=== PATIENT | female | born 1950 ===

== ENCOUNTER 2017-02-24 07:18 | Day surgery (SDC) | payer BC ==
[2017-02-24 07:38] VITALS: BMI 25.9
[2017-02-24 08:36] LABS: BASO # 0.02 K/mm3 (0.0-2.0); BASO % 0.2 % (0.0-3.0); EOS # 0.1 (0.0-0.7); EOS % 1.5 % (1.5-5.0); HEMOGLOBIN 12.3 gm/dL (12.0-16.0); LYMPH # 2.4 (1.2-3.4); LYMPH % 29.2 % (22.0-35.0); MEAN CELL VOLUME 89.4 fL (80.0-105.0); MEAN CORPUSCULAR HEMOGLOBIN 29.5 pg (25.0-35.0); MEAN PLATELET VOLUME 10.3 fl (7.0-11.0); MONO # 0.5 (0.1-0.6); MONO % 6.1 % (1.0-6.0); PLATELET COUNT 240 10^3/uL (120.0-450.0); RBC 4.17 10^6/uL (3.5-6.1); RED CELL DISTRIBUTION WIDTH 13.7 % (11.5-14.5); WHITE BLOOD COUNT 8.1 10^3/ul (4.5-11.0)
[2017-02-24 08:46] LABS: INR 0.9 (0.93-1.08); PARTIAL THROMBOPLASTIN TIME 25.6 Seconds (23.7-30.8); PROTHROMBIN TIME 9.7 Seconds (9.9-11.8)
[2017-02-24 08:47] LABS: BLOOD UREA NITROGEN 14 mg/dL (7-21); CALCIUM 9.7 mg/dL (8.4-10.5); GFR AFRICAN-AMERICAN > 60; GFR NON-AFRICAN AMERICAN > 60
[2017-02-24] MEDS ORDERED: Lidocaine 2% Inj (20ml) ONE (08:49)
[2017-02-24] MEDS ORDERED: Midazolam 2 MG/2 ML VIAL ONE ×2 (09:10→09:46)
--- NOTE | 2017-02-24 09:20 | ED PDOC ---
Arrival/HPI - General Chief Complaint: Medical Clearance Time Seen by Provider: 02/24/17 07:23 Historian: Patient - History of Present Illness Narrative History of Present Illness (Text): 02/24/17 09:42 A 66 year old female was sent to the emergency department by Dr. Fernando Portillo for mediport placement today. Patient denies any other complaints at this time. Activities at Onset: Rest Modifying Factors (Text): none Context: Home Associated Symptoms (Text): none Past Medical History - Provider Review Nursing Documentation Reviewed: Yes - Cardiac Hx Cardiac Disorders: No - Pulmonary Hx Respiratory Disorders: No - Neurological Hx Neurological Disorder: No - HEENT Hx HEENT Disorder: No - Renal Hx Renal Disorder: No - Endocrine/Metabolic Hx Endocrine Disorders: Yes Hx Hypothyroidism: Yes - Hematological/Oncological Hx Cancer: Yes - Genitourinary/Gynecological Hx Ovarian Cancer: Yes - Psychiatric Hx Substance Use: No - Surgical History Hx Hysterectomy: Yes Hx Thyroidectomy: Yes - Anesthesia Hx Anesthesia: Yes Hx Anesthesia Reactions: No Hx Malignant Hyperthermia: No Family/Social History - Physician Review Nursing Documentation Reviewed: Yes Family/Social History: No Known Family HX Smoking Status: Never Smoked Hx Alcohol Use: No Hx Substance Use: No Allergies/Home Meds Allergies/Adverse Reactions: Allergies No Known Allergies Allergy (Verified 02/24/17 07:38) Home Medications: Home Meds Medication Instructions Recorded Confirmed Enoxaparin [Lovenox] 40 mg SQ DAILY 02/24/17 02/24/17 Levothyroxine [Synthroid] 75 mcg PO DAILY 02/24/17 02/24/17 Review of Systems - Physician Review All systems were reviewed & negative as marked: Yes - Review of Systems Constitutional: absent: Fevers Eyes: absent: Vision Changes Respiratory: absent: SOB Neurological: absent: Headache Physical Exam - Physical Exam Narrative Physical Exam (Text): 02/24/17 09:21 Constitutional: No acute distress. Head: Normocephalic. Atraumatic. Eyes: PERRL. ENT: Moist mucous membranes. Neck: Supple. Cardiovascular: Regular rate. Chest: No tenderness. Respiratory: Clear to auscultation bilaterally. GI: Soft. Nontender. Nondistended. Back: No CVA tenderness. Musculoskeletal: No tenderness or swelling of extremities. Skin: No rash. Neurologic: Alert, no focal deficit. Vital Signs Reviewed: Yes Vital Signs Temp Pulse Resp BP Pulse Ox 02/24/17 11:14 97.5 F L 68 20 113/72 96 02/24/17 10:59 97.9 F 63 20 110/68 98 02/24/17 10:44 97.9 F 64 18 118/71 98 02/24/17 10:29 97.9 F 70 19 128/76 98 02/24/17 07:38 98.5 F 72 18 111/57 L 97 Temperature: Afebrile Blood Pressure: Hypotensive Pulse: Regular Respiratory Rate: Normal Appearance: Positive for: Well-Appearing, Non-Toxic, Comfortable Pain Distress: None Mental Status: Positive for: Alert and Oriented X 3 - Systems Exam Head: Present: Atraumatic Medical Decision Making ED Course and Treatment: 02/24/17 09:17 Impression: A 66 year old female sent by Dr. Fernando Portillo for mediport placement. Plan: -- labs -- Dr. Portillo accepts for admission to [facility]. - Lab Interpretations Lab Results: 02/24/17 08:20 02/24/17 08:20 Lab Results 02/24/17 08:20: Sodium 136, Potassium 4.6, Chloride 102, Carbon Dioxide 28, Anion Gap 11, BUN 14, Creatinine 0.5, Est GFR ( Amer) > 60, Est GFR (Non- Af Amer) > 60, Random Glucose 116 H, Calcium 9.7 02/24/17 08:20: PT 9.7 L, INR 0.90 L, APTT 25.6 02/24/17 08:20: WBC 8.1, RBC 4.17, Hgb 12.3, Hct 37.3, MCV 89.4, MCH 29.5, MCHC 33.0, RDW 13.7, Plt Count 240, MPV 10.3, Gran % 63.0, Lymph % (Auto) 29.2, [place] % (Auto) 6.1 H, Eos % (Auto) 1.5, Baso % (Auto) 0.2, Gran # 5.10, Lymph # 2.4, [place] # 0.5, Eos # 0.1, Baso # 0.02 I have reviewed the lab results: Yes - RAD Interpretation Radiology Orders: 02/24/17 07:51 CAR PERIPHERAL VASCULAR ORDER [VASCULAR] Stat - Medication Orders Current Medication Orders: Acetaminophen (Tylenol 325mg Tab) 650 mg PO Q4 PRN PRN Reason: Pain, Mild (1-3) Sodium Chloride (Sodium Chloride 0.45%) 1,000 mls @ 80 mls/hr IV .[id number] MAXWELL Ondansetron HCl (Zofran Inj) 4 mg IVP Q6H PRN PRN Reason: Nausea/Vomiting Oxycodone/Acetaminophen (Percocet 5/325 Mg Tab) 1 tab PO Q4H PRN PRN Reason: Pain, moderate (4-7) Stop: 02/27/17 10:26 Discontinued Medications Cefazolin Sodium (Ancef) Confirm Administered Dose 1 gm .ROUTE .STK-MED ONE Stop: 02/24/17 09:10 Last Admin: 02/24/17 09:45 Dose: 1 gm Fentanyl (Fentanyl) Confirm Administered Dose 100 mcg .ROUTE .STK-MED ONE Stop: 02/24/17 09:11 Last Admin: 02/24/17 09:44 Dose: 100 mcg Comments: Dr. Manuel Portillo adm. Fentanyl 50 mcg IV @ 0944, an additional dose of Fentanyl 50 mcg IV was given @ 0950 Fentanyl (Fentanyl) Confirm Administered Dose 100 mcg .ROUTE .STK-MED ONE Stop: 02/24/17 09:47 Last Admin: 02/24/17 09:58 Dose: 100 mcg Comments: Fentanyl 50 mcg IV was given @ 0958 and 1002 Heparin Sodium (Porcine) (Heparin 1000 Units/500 Ml Ns) Confirm Administered Dose 1,000 mls @ ud IV .STK-MED ONE Stop: 02/24/17 08:50 Lidocaine HCl (Lidocaine 2% 20ml Vial) Confirm Administered Dose 40 ml .ROUTE .STK-MED ONE Stop: 02/24/17 08:50 Midazolam HCl (Versed Inj) Confirm Administered Dose 2 mg .ROUTE .STK-MED ONE Stop: 02/24/17 09:11 Last Admin: 02/24/17 09:44 Dose: 2 mg Comments: Dr. Manuel Portillo adm. Versed 1.5 mg IV @ 0944, an additional dose of Versed 0.5 mg IV was given @ 0950 Midazolam HCl (Versed Inj) Confirm Administered Dose 2 mg .ROUTE .STK-MED ONE Stop: 02/24/17 09:47 Last Admin: 02/24/17 09:58 Dose: 1.5 mg Comments: Versed 1 mg IV was given @ 0958, and Versed 0.5 mg IV was given @ 1001 - Scribe Statement The provider has reviewed the documentation as recorded by the Yoshi Parry Provider Scribe Attestation: All medical record entries made by the Scribe were at my direction and personally dictated by me. I have reviewed the chart and agree that the record accurately reflects my personal performance of the history, physical exam, medical decision making, and the department course for this patient. I have also personally directed, reviewed, and agree with the discharge instructions and disposition. Disposition/Present on Arrival - Present on Arrival Any Indicators Present on Arrival: No History of DVT/PE: No History of Uncontrolled Diabetes: No Urinary Catheter: No History of Decub. Ulcer: No History Surgical Site Infection Following: None - Disposition Have Diagnosis and Disposition been Completed?: Yes Diagnosis: Admission for fitting of port-a-cath Disposition Time: 07:41 Patient Plan: Admission Condition: STABLE
[2017-02-24] MEDS ORDERED: Oxycodone/Acetaminophen 5/325 mg Tab PO PRN (10:25)
[2017-02-24] MEDS ORDERED: Sodium Chloride 0.45% 1,000 ML IV SCH (10:30)
[2017-02-24 11:01] VITALS: RESP 20
[2017-02-24 11:16] VITALS: TEMP 97.5
[2017-02-24 12:17] VITALS: BP 117/70; PULSE 70; O2SAT 98
--- NOTE | 2017-02-24 15:33 | VASCULAR ---
PROCEDURE: Ultrasound and fluoroscopic right internal jugular venous access port. CLINICAL HISTORY: Ovarian carcinoma.Venous port for chemotherapy. PHYSICIAN(S): Fernando Portillo M.D. TECHNIQUE: The relative risks and indications of the procedure were explained to the patient and consent obtained. The patient was placed supine on the arteriogram table and the right neck and chest prepped and draped in the usual sterile fashion. Conscious sedation monitoring was provided throughout the procedure by a nurse. Antibiotics were given prior to the procedure. Under direct ultrasound guidance, the right internal jugular vein was punctured with a micro-puncture set. A 0.035 angled Glidewire was advanced into the IVC. A 4 cm incision was made below the right clavicle and the pocket blunted dissected. A 8 [place] single-lumen catheter, 21 cm long, was advanced to the SVC/RA junction. The catheter was trimmed and attached to the port. The port aspirates and injects easily. The port was placed in the pocket and closed in 2 layers. An access needle was placed. The patient tolerated the procedure well. IMPRESSION: Ultrasound and fluoroscopically placed right internal jugular venous access port.
== END 2017-02-24 12:16 | disposition home or self-care (01) ==
LOC: ED 07:18 → MERGE 07:41 → SDSVAS 07:41
PROVIDERS: ATTEND Radiology Vascular & Interventional Radiology
DX: C56.9 Malignant neoplasm of unspecified ovary (principal); E03.9 Hypothyroidism, unspecified
CPT/HCPCS: 36561; 76937; 77001; 80048; 85025; 85610; 85730; 99152; 99284; C1760; C1769; J0690; J1644; J2250; J2405; J3010; J7030